=== PATIENT | male | born 1990 | race African-American/Black ===

== ENCOUNTER 2024-03-19 06:23 | Emergency (ER) | payer OTHER ==
[~2024-03-19] VITALS: Ht 198.1 cm; Wt 104.3 kg
[2024-03-19 06:46] VITALS: BP 144/98; TEMP 98
[2024-03-19] MEDS: BACI/NEOM/POLY B OINT PKT 1 UDPKT PACKET TP ONE (07:00)
[2024-03-19] MEDS ORDERED: TDAP [DIPH/PERTUSSIS/TET] 0.5 ML VIAL IM ONE (07:07)
[2024-03-19] MEDS: TDAP [DIPH/PERTUSSIS/TET] 0.5 ML VIAL IM ONE (07:14)
[2024-03-19] MEDS ORDERED: AMOX-430 PO (08:18)
[2024-03-19 08:34] VITALS: O2SAT 99
== END 2024-03-19 08:33 | disposition home or self-care (01) ==
LOC: ER 06:29
DX: S01.81XA Laceration without foreign body of other part of head, initial encounter (principal); S61.012A Laceration without foreign body of left thumb without damage to nail, initial encounter; Z60.2 Problems related to living alone; Y04.2XXA Assault by strike against or bumped into by another person, initial encounter; Y93.89 Activity, other specified; Y92.89 Other specified places as the place of occurrence of the external cause; Y99.8 Other external cause status
CPT/HCPCS: 90715